=== PATIENT | male | born 1975 | race Caucasian/White ===

== ENCOUNTER 2016-06-01 10:02 | Emergency (ER) | payer OTHER ==
[2016-06-01 10:18] VITALS: RESP 18; O2SAT 92
--- NOTE | 2016-06-01 10:25 | UCPHY ---
H & P Time Seen by Provider: 06/01/16 10:16 Patient Type: Established HPI/ROS: CHIEF COMPLAINT: Cough, runny nose, fever HPI: The patient is a 40-year-old male with no significant past medical history. He complains of approximately 2 weeks of cough, diffuse body aches, subjective fever, runny nose. His had similar symptoms which have since resolved. He denies hemoptysis, abdominal pain or headache. REVIEW OF SYSTEMS: Aside from elements discussed in the HPI, a comprehensive 10-point review of systems was reviewed and is negative. PMH: None significant. SOCIAL HISTORY: . FAMILY HISTORY: Reviewed, noncontributory PHYSICAL EXAM: General:Patient is alert, in no acute distress. ENT:Eyes are normal to inspection. ENT inspection normal. Neck: Normal inspection. Full range of motion. Respiratory:No respiratory distress. Mild wheeze and rhonchi primarily in right base. Cardiovascular: Regular rate and rhythm. Strong peripheral pulses. Normal cap refill. Abdomen:The abdomen is nontender to palpation. There are no peritoneal signs. There are normal bowel sounds. Back: Normal to inspection. No tenderness to palpation. Skin: Normal color. No rash. Warm and dry. Extremities: Normal appearance. Full range of motion. Neuro: Oriented x3. Normal motor function. Normal sensory function. Smoking Status: Never smoked Constitutional: Initial Vital Signs Temperature (C) 37.6 C 06/01/16 10:14 Heart Rate 90 06/01/16 10:14 Respiratory Rate 18 06/01/16 10:14 Blood Pressure 138/83 H 06/01/16 10:14 O2 Sat (%) 92 06/01/16 10:14 O2 Delivery Mode Room Air Allergies/Adverse Reactions: No Known Allergies Allergy (Unverified 01/01/16 07:37) Home Medications: Medication Instructions Recorded AZITHROMYCIN [Z-PACK] 250 mg PO DAILY 5 Days 06/01/16 MDM/Departure - MDM Diagnostics: Chest x-ray reveals right lower lobe pneumonia. Viewed and interpreted by myself. ED Course/Re-evaluation: This patient presents with signs and symptoms concerning for pneumonia, which is indeed confirmed on chest x-ray. He is not hypoxic and given his lack of comorbidities, I think outpatient management on azithromycin is a reasonable choice. The patient is comfortable with this plan. We discussed strict return precautions. I see no evidence of PE, pneumothorax, acute coronary syndrome or severe sepsis. - Depart Disposition: Home, Routine, Self-Care Clinical Impression: Pneumonia Condition: Good Instructions: Pneumonia (ED) Additional Instructions: Use ibuprofen and Tylenol as needed for fever and body aches. Follow up with your primary care physician within 72 hours for reevaluation. Drink plenty of fluids. Return to the emergency department immediately for high fever, severe headache or neck pain, difficulty breathing, abdominal pain, rash or other worsening of condition. Prescriptions: AZITHROMYCIN [Z-PACK] 250 mg PO DAILY 5 Days Referrals: NONE *PRIMARY CARE P,. [Primary Care Provider] - As per Instructions - PQRS PQRS Measurement: 134: Depression screening and followup, PRIME MD-PHQ2 (12 years and older) Over the last 2 weeks, how often have you been bothered by any of the following problems? 1. Feeling down, depressed, or hopeless? 2. Little interest or pleasure in doing things? Patient answered no to both 1 and 2 130: Documentation of medications. Reviewed all patient medications, doses, route and frequency. 226: Do you smoke? No. 51: 18 years old and older with diagnosis of COPD, spirometry performance. Spirometry not performed; equipment not available. Patient has no history of COPD 52: 18 years old and older with COPD and symptoms of COPD or FEV1<60% predicted prescribed a B Agonist. Spirometry not performed; equipment not available.
[2016-06-01 11:28] VITALS: BP 133/80; PULSE 87; TEMP 99.9
== END 2016-06-01 11:24 | disposition home or self-care (01) ==
LOC: CED 10:02
DX: J40 Bronchitis, not specified as acute or chronic (principal)
CPT/HCPCS: 71020-PO; 99214-PO; G0463-PO